=== PATIENT | female | born 1990 | race Caucasian/White ===

== ENCOUNTER 2018-02-11 23:43 | Emergency (ER) | payer BC ==
[~2018-02-11] VITALS: Ht 162.6 cm; Wt 59.0 kg
[2018-02-11] MEDS ORDERED: LORAZEPAM 2 MG/1 ML VIAL ONE (23:58)
[2018-02-12] MEDS ORDERED: LORAZEPAM 2 MG/1 ML VIAL IM ONE
--- NOTE | 2018-02-12 00:04 | NUR ---
Pt ambulates to ER with c/o panic attack, crying, hyperventilating for 30 min [employer]. Pt accompanied by brother and boyfriend who states pt has very stressful situations happening in her life right now.
--- NOTE | 2018-02-12 01:01 | NUR ---
Patient discharged to home in stable conditon. Written and verbal after care instructions given. Patient verbalizes understanding of instructions. Pt ambulated out of ER in steady gait accompanied by boyfriend who will drive home. All belongings with pt. VSS. NAD noted
[2018-02-12 01:07] VITALS: BP 114/66
== END 2018-02-12 01:08 | disposition home or self-care (01) ==
LOC: ER 23:45
DX: F43.0 Acute stress reaction (principal); Z88.8 Allergy status to other drugs, medicaments and biological substances
CPT/HCPCS: 96372; 99284; A4663; J2060

== ENCOUNTER 2018-10-11 11:11 | Emergency (ER) | payer BC ==
[~2018-10-11] VITALS: Ht 160 cm; Wt 73.9 kg
[2018-10-11] MEDS ORDERED: SODIUM BICARBONATE 4.2 % (NEUT) 5 ML VIAL TP ONE (11:30)
[2018-10-11] MEDS ORDERED: TDAP DIPH,PERTUSS,TET VAC/PF 0.5 ML DISP.SYRIN IM ONE ×3 (11:30→12:14)
[2018-10-11] MEDS ORDERED: LIDOCAINE HCL 2% 20 ML VIAL TP ONE (11:30)
[2018-10-11] MEDS ORDERED: KETOROLAC TROMETHAMINE 30 MG INJ ONE (11:39)
[2018-10-11] MEDS ORDERED: LET TOPICAL SOLUTION 8 ML UDC ONE (11:40)
[2018-10-11] MEDS: KETOROLAC TROMETHAMINE 30 MG INJ IM ONE ×2 (11:43→12:00)
[2018-10-11] MEDS: LET TOPICAL SOLUTION 8 ML UDC TOP ONE ×2 (11:43→12:19)
[2018-10-11] MEDS ORDERED: NEOMY/BACITRA/POLYMYXIN B OINT UD PACKET TP ONE ×2 (13:00→13:02)
--- NOTE | 2018-10-11 13:08 | NUR ---
pt present with lacertion to L had, between left thumb index finger 10 min [employer]. Pt appears anxious. bleeding controlled.
== END 2018-10-11 13:08 | disposition home or self-care (01) ==
LOC: ER 11:11
DX: S61.412A Laceration without foreign body of left hand, initial encounter (principal); Z88.8 Allergy status to other drugs, medicaments and biological substances; Z90.89 Acquired absence of other organs; W26.8XXA Contact with other sharp object(s), not elsewhere classified, initial encounter; Y93.89 Activity, other specified; Y92.89 Other specified places as the place of occurrence of the external cause; Y99.8 Other external cause status
CPT/HCPCS: 12001; 90471; 90715; 96372; 99283; J1885; J3490; A4217; A4663

== ENCOUNTER 2021-02-18 11:58 | Emergency (ER) | payer SELFPAY ==
[~2021-02-18] VITALS: Ht 167.6 cm; Wt 69.4 kg
--- NOTE | 2021-02-18 12:32 | NUR ---
Pt was evaluated by dr Babcock. Pt was d/c to home. D/C instructions given to the pt by dr Babcock. Gauze dressing was applied to the wound side, no bleeding.
[2021-02-18 12:34] VITALS: BP 128/66
== END 2021-02-18 12:35 | disposition home or self-care (01) ==
LOC: ER 11:58
DX: S61.211A Laceration without foreign body of left index finger without damage to nail, initial encounter (principal); W26.0XXA Contact with knife, initial encounter; Y93.G3 Activity, cooking and baking; Y92.89 Other specified places as the place of occurrence of the external cause; Z85.850 Personal history of malignant neoplasm of thyroid; E89.0 Postprocedural hypothyroidism
CPT/HCPCS: A4663

== ENCOUNTER 2022-05-23 16:02 | Emergency (ER) | payer SELFPAY | END 2022-05-23 16:37 | disposition left against medical advice (07) | LOC: ER 16:02 | DX: Z53.21 Procedure and treatment not carried out due to patient leaving prior to being seen by health care provider (principal) ==